=== PATIENT | male | born 1970 | race Two or more races ===

== ENCOUNTER 2016-08-26 11:29 | Emergency (ER) | payer MEDICAID, OTHER ==
[~2016-08-26] VITALS: Ht 175.3 cm; Wt 81.0 kg
[~2016-08-26 11:29] MED LIST: CEFU500T; FOLI-43; MYCO180T; PRED-276; PROG1; VIAG50; VITA1TAB10
[2016-08-26] MEDS ORDERED: CEFAZOLIN 1000MG PREMIX 50 ML IV ONE (12:00)
[2016-08-26] MEDS ORDERED: KETOROLAC 30MG/ML VIAL IV ONE (12:00)
[2016-08-26] MEDS ORDERED: TETANUS, DIPHTHERIA, PERTUSSIS VAC/PF 0.5ML (>7YR OLD) IM ONE (12:00)
[2016-08-26] MEDS ORDERED: LIDOCAINE HCL 1% 20ML VIAL (Pyxis) INJ MC ONE (12:00)
[2016-08-26] MEDS ORDERED: BACITRACIN ZINC OINT UDPKT TOP ONE (12:00)
[2016-08-26 14:49] VITALS: BP 124/76
== END 2016-08-26 14:55 | disposition home or self-care (01) ==
LOC: ER 11:30
DX: S01.01XA Laceration without foreign body of scalp, initial encounter (principal); Z94.0 Kidney transplant status; Z79.899 Other long term (current) drug therapy; W26.8XXA Contact with other sharp object(s), not elsewhere classified, initial encounter; Y93.89 Activity, other specified; Y99.8 Other external cause status; Y92.89 Other specified places as the place of occurrence of the external cause
CPT/HCPCS: 12002; 70450; 90471; 90715; 96365; 96375; 99284; J0690; J1885; J3490

== ENCOUNTER 2016-08-31 13:26 | Emergency (ER) | payer MEDICAID ==
[~2016-08-31] VITALS: Ht 175.3 cm; Wt 76.0 kg
[2016-08-31 13:34] VITALS: BP 117/67
[2016-08-31] MEDS ORDERED: BACITRACIN ZINC OINT UDPKT TOP ONE (16:15)
== END 2016-08-31 17:16 | disposition home or self-care (01) ==
LOC: ER 17:09
DX: S01.01XD Laceration without foreign body of scalp, subsequent encounter (principal); Z94.0 Kidney transplant status; X58.XXXD Exposure to other specified factors, subsequent encounter; Y99.8 Other external cause status; Y92.89 Other specified places as the place of occurrence of the external cause
CPT/HCPCS: 99282; Z7610

== ENCOUNTER 2017-12-09 01:57 | Emergency (ER) | payer MEDICAID, OTHER ==
[~2017-12-09] VITALS: Ht 167.6 cm; Wt 80.0 kg
[2017-12-09 02:18] VITALS: BP 122/88
== END 2017-12-09 04:15 | disposition left against medical advice (07) ==
LOC: ER 01:57
DX: R07.89 Other chest pain (principal); R42 Dizziness and giddiness; Z53.21 Procedure and treatment not carried out due to patient leaving prior to being seen by health care provider
CPT/HCPCS: 93005

== ENCOUNTER 2023-01-10 01:23 | Emergency (ER) | payer MEDICAID, OTHER ==
[~2023-01-10] VITALS: Ht 177.8 cm; Wt 69.0 kg
[~2023-01-10 01:23] MED LIST changes: -PRED-276; +PRED-855; -PROG1; +TACR1CAP2
[2023-01-10 02:10] VITALS: O2SAT 98
[2023-01-10 03:42] LABS: CLARITY URINE CLEAR (CLEAR); COLOR URINE YELLOW (YELLOW); GLUCOSE URINE 1+ (NEGATIVE); KETONES URINE NEGATIVE (NEGATIVE); LEUKOCYTE ESTERASE URINE NEGATIVE (NEGATIVE); NITRITE URINE NEGATIVE (NEGATIVE); OCCULT BLOOD URINE NEGATIVE (NEGATIVE); PROTEIN URINE TRACE (NEGATIVE); SPECIFIC GRAVITY URINE 1.026 (1.005-1.030); UROBILINOGEN URINE 0.2 E.U./dL (0.2-1.0)
[2023-01-10 06:21] LABS: HEMATOCRIT. 36.2 % (42.0-52.0); HEMOGLOBIN. 12.4 g/dL (14.0-18.0); MEAN CORPUSCULAR HEMOGLOBIN 28.6 pg (28.0-32.0); MEAN CORPUSCULAR HGB CONC 34.4 g/dL (31.0-37.0); MEAN CORPUSCULAR VOLUME 83.1 fL (80.0-94.0); MEAN PLATELET VOLUME 7.4 fl (7.4-10.4); PLATELET 141 x1000/uL (130-400); RED BLOOD CELL COUNT 4.35 mill/uL (4.7-6.1); WHITE BLOOD COUNT 6.5 x1000/uL (4.5-11.0)
[2023-01-10 06:29] LABS: CHLORIDE 107 mEq/L (98-107); INDEX HEMOLYSI 1 (1-3); INDEX ICTERIC 1 (1-4); INDEX LIPEMIC 1 (1-3); POTASSIUM 4.3 mEq/L (3.5-5.1); SODIUM 137 mEq/L (136-145)
[2023-01-10 06:37] LABS: ALANINE AMINOTRANSFERASE 44 IU/L (13-61); ALBUMIN 3.9 g/dL (3.4-5.0); ASPARTATE AMINOTRANSFERASE 24 IU/L (15-37); BILIRUBIN TOTAL 0.8 mg/dL (0.1-1.0); CALCIUM 9.9 mg/dL (8.5-10.1); CARBON DIOXIDE 22 mEq/L (21-32); CREATININE 2.2 mg/dL (0.6-1.3); GLUCOSE 170 mg/dL (70-105); PROTEIN TOTAL 8.3 g/dL (6.0-8.3); UREA NITROGEN BLOOD 35 mg/dL (7-21)
[2023-01-10 06:45] LABS: DIFFERENTIAL COMMENT 1
[2023-01-10 07:25] LABS: PLATELET ESTIMATE NORMAL
[2023-01-10 07:31] LABS: SQUAMOUS EPITHELIAL CELL URINE RARE /lpf (RARE/1+)
[2023-01-10 07:32] LABS: RBC URINE NONE SEEN /hpf (0-2); WBC URINE 0-2 /hpf (0-2)
[2023-01-10 07:33] LABS: BACTERIA URINE 1+
[2023-01-10] MEDS ORDERED: ACETAMINOPHEN 325MG TABLET PO ONE (08:30)
[2023-01-10] MEDS ORDERED: SODIUM CHLORIDE 0.9% 1,000 ML IV ONE (08:45)
[2023-01-10 10:54] VITALS: BP 133/78; PULSE 90; RESP 14; TEMP 99.5
== END 2023-01-10 10:56 | disposition home or self-care (01) ==
LOC: ER 01:23
DX: B34.9 Viral infection, unspecified (principal); H92.02 Otalgia, left ear; R07.81 Pleurodynia; Z94.0 Kidney transplant status; Z98.890 Other specified postprocedural states
CPT/HCPCS: 99285; 96360; 76705; 87426; 80053; 81003; 87430; 83605; 83690; 85025; 87040; 87086; 87070; 36415; 71101; 93005; J7030; C9803